=== PATIENT | male | born 1975 | race Caucasian/White ===

== ENCOUNTER 2018-05-04 03:50 | Inpatient (IN) | payer BC ==
[2018-05-04] MEDS ORDERED: BISACODYL (EC) 5 MG TAB PO (07:00)
[2018-05-04] MEDS: ACETAMINOPHEN 325 MG TAB PO ×2 (07:43→22:01)
[2018-05-04] MEDS: SOD CHLORIDE 0.9% 1,000 ML IV ×3 (07:55→17:49)
[2018-05-04] MEDS: CEFTRIAXONE 1 GM/50 ML (PMX) 50 ML IVPB (07:55)
[2018-05-04] MEDS ORDERED: IPRATROPIUM (NEB) 0.5 MG/2.5 ML AMP HHN ×2 (08:00→09:00)
[2018-05-04] MEDS: PANTOPRAZOLE (EC) 40 MG TAB PO (08:17)
[2018-05-04] MEDS: ENOXAPARIN 40 MG/0.4 ML SYG SC (08:20)
[2018-05-04] MEDS: AZITHROMYCIN 500MG/NS (PMX) 250 ML IV (08:39)
[2018-05-04] MEDS: INSULIN ASPART [NOVOLOG] 3 ML PEN SC ×4 (08:47→20:05)
[2018-05-04] MEDS: ALBUTEROL/IPRATROPIUM (NEB) 3 ML AMP HHN ×3 (08:52→20:00)
[2018-05-04] MEDS ORDERED: AZITHROMYCIN 500 MG in SOD CHLORIDE 0.9% 250 ML IVPB (09:00)
[2018-05-04 10:10] LABS: ADD MAN DIFF? NO
[2018-05-04 10:18] LABS: WHITE BLOOD COUNT 22.2 10^3/ul (4.8-10.8)
[2018-05-04 10:18] LABS: BASOPHILS % 0.2 % (0.0-2.0); HEMATOCRIT 36.7 % (42.0-52.0); HEMOGLOBIN 12.3 g/dl (14.0-18.0); LYMPHOCYTES # 1.4 10^3/ul (0.8-2.9); LYMPHOCYTES % 6.2 % (15.0-51.0); MEAN CORPUSCULAR HEMOGLOBIN 29.2 pg (29.0-33.0); MEAN CORPUSCULAR HGB CONC 33.5 g/dl (32.0-37.0); MEAN CORPUSCULAR VOLUME 87.2 fl (82.0-101.0); MEAN PLATELET VOLUME 9.9 fl (7.4-10.4); MONOCYTE # 1.1 10^3/ul (0.3-0.9); MONOCYTES % 4.8 % (0.0-11.0); NEUTROPHILS % 85.8 % (39.0-77.0); PLATELET COUNT 235 10^3/UL (140-415); RED BLOOD COUNT 4.21 10^6/ul (4.70-6.10); RED CELL DISTRIBUTION WIDTH 13.5 % (11.5-14.5)
[2018-05-04 10:40] LABS: ANION GAP 15 (8-16); BLOOD UREA NITROGEN 12 mg/dl (7-20); CALCIUM 8.8 mg/dl (8.4-10.2); CARBON DIOXIDE 27 mmol/L (21-31); CHLORIDE 101 mmol/L (97-110); CREATININE 0.77 mg/dl (0.61-1.24); GLUCOSE 106 mg/dl (70-220); POTASSIUM 3.8 mmol/L (3.5-5.1); SODIUM 139 mmol/L (135-144)
[2018-05-04 12:42] LABS: LACTIC ACID 1.3 mmol/L (0.5-2.0)
[2018-05-04] MEDS ORDERED: ACETAMINOPHEN 325 MG TAB PO (13:00)
[2018-05-04] MEDS: IBUPROFEN 400 MG TAB PO (13:01)
[2018-05-04] MEDS: HYDROCHLOROTHIAZIDE 12.5 MG CAP PO (13:44)
[2018-05-04] MEDS: LOSARTAN 50 MG TAB PO (13:45)
[2018-05-04 22:43] LABS: LACTIC ACID 1.8 mmol/L (0.5-2.0)
[2018-05-05 01:03] LABS: LACTIC ACID 1.2 mmol/L (0.5-2.0)
[2018-05-05] MEDS: ALBUTEROL/IPRATROPIUM (NEB) 3 ML AMP HHN ×4 (01:17→20:05)
[2018-05-05] MEDS: ACCU-CHEK XX (02:00)
[2018-05-05] MEDS: SOD CHLORIDE 0.9% 1,000 ML IV ×4 (02:02→22:22)
[2018-05-05 06:10] LABS: ADD MAN DIFF? NO
[2018-05-05 06:16] LABS: WHITE BLOOD COUNT 12.8 10^3/ul (4.8-10.8)
[2018-05-05 06:16] LABS: BASOPHILS % 0.2 % (0.0-2.0); EOSINOPHILS # 0.2 10^3/ul (0.0-0.5); EOSINOPHILS % 1.3 % (0.0-7.0); HEMATOCRIT 38.4 % (42.0-52.0); HEMOGLOBIN 12.4 g/dl (14.0-18.0); LYMPHOCYTES # 1.3 10^3/ul (0.8-2.9); LYMPHOCYTES % 10.1 % (15.0-51.0); MEAN CORPUSCULAR HEMOGLOBIN 28.7 pg (29.0-33.0); MEAN CORPUSCULAR HGB CONC 32.3 g/dl (32.0-37.0); MEAN CORPUSCULAR VOLUME 88.9 fl (82.0-101.0); MEAN PLATELET VOLUME 10.6 fl (7.4-10.4); MONOCYTE # 0.7 10^3/ul (0.3-0.9); MONOCYTES % 5.1 % (0.0-11.0); NEUTROPHIL # 10.6 10^3/ul (1.6-7.5); NEUTROPHILS % 82.8 % (39.0-77.0); PLATELET COUNT 214 10^3/UL (140-415); RED BLOOD COUNT 4.32 10^6/ul (4.70-6.10); RED CELL DISTRIBUTION WIDTH 13.2 % (11.5-14.5)
[2018-05-05] MEDS: CEFTRIAXONE 1 GM/50 ML (PMX) 50 ML IVPB (06:18)
[2018-05-05] MEDS: PANTOPRAZOLE (EC) 40 MG TAB PO (06:21)
[2018-05-05] MEDS: LEVOTHYROXINE 25 MCG TAB PO (06:22)
[2018-05-05 06:41] LABS: ANION GAP 14 (8-16); BLOOD UREA NITROGEN 12 mg/dl (7-20); CARBON DIOXIDE 26 mmol/L (21-31); CHLORIDE 106 mmol/L (97-110); CREATININE 0.67 mg/dl (0.61-1.24); GLUCOSE 131 mg/dl (70-220); POTASSIUM 3.5 mmol/L (3.5-5.1); SODIUM 142 mmol/L (135-144)
[2018-05-05 07:05] LABS: HEMOGLOBIN A1C 6.4 % (0-5.9)
[2018-05-05] MEDS: AZITHROMYCIN 500MG/NS (PMX) 250 ML IV (07:37)
[2018-05-05] MEDS: INSULIN ASPART [NOVOLOG] 3 ML PEN SC ×4 (07:37→21:00)
[2018-05-05] MEDS: HYDROCHLOROTHIAZIDE 12.5 MG CAP PO (07:38)
[2018-05-05] MEDS: LOSARTAN 50 MG TAB PO (07:38)
[2018-05-05] MEDS: IBUPROFEN 400 MG TAB PO ×2 (07:47→20:34)
[2018-05-05] MEDS: ENOXAPARIN 40 MG/0.4 ML SYG SC (07:50)
[2018-05-05] MEDS ORDERED: NON-FORMULARY/PATIENT OWN MED (Losartan-Hydrochlorothiazide (Losartan-HCTZ) 1 TAB) PO (09:00)
[2018-05-06] MEDS: ALBUTEROL/IPRATROPIUM (NEB) 3 ML AMP HHN ×4 (02:00→19:38)
[2018-05-06] MEDS: ACCU-CHEK XX (02:00)
[2018-05-06] MEDS: IBUPROFEN 400 MG TAB PO ×2 (04:03→23:13)
[2018-05-06 05:43] LABS: ADD MAN DIFF? NO
[2018-05-06 05:58] LABS: BASOPHILS % 0.2 % (0.0-2.0); EOSINOPHILS # 0.1 10^3/ul (0.0-0.5); EOSINOPHILS % 1.6 % (0.0-7.0); HEMATOCRIT 35.4 % (42.0-52.0); LYMPHOCYTES # 1.2 10^3/ul (0.8-2.9); MEAN CORPUSCULAR HEMOGLOBIN 29.2 pg (29.0-33.0); MEAN CORPUSCULAR HGB CONC 33.9 g/dl (32.0-37.0); MEAN CORPUSCULAR VOLUME 86.1 fl (82.0-101.0); MEAN PLATELET VOLUME 10.3 fl (7.4-10.4); MONOCYTE # 0.5 10^3/ul (0.3-0.9); MONOCYTES % 6.5 % (0.0-11.0); NEUTROPHIL # 6.2 10^3/ul (1.6-7.5); PLATELET COUNT 276 10^3/UL (140-415); RED BLOOD COUNT 4.11 10^6/ul (4.70-6.10); RED CELL DISTRIBUTION WIDTH 13.4 % (11.5-14.5)
[2018-05-06 05:58] LABS: WHITE BLOOD COUNT 8.1 10^3/ul (4.8-10.8)
[2018-05-06] MEDS: PANTOPRAZOLE (EC) 40 MG TAB PO (06:15)
[2018-05-06] MEDS: LEVOTHYROXINE 25 MCG TAB PO (06:15)
[2018-05-06] MEDS: CEFTRIAXONE 1 GM/50 ML (PMX) 50 ML IVPB (06:16)
[2018-05-06] MEDS: INSULIN ASPART [NOVOLOG] 3 ML PEN SC ×4 (07:37→20:52)
[2018-05-06] MEDS: AZITHROMYCIN 500MG/NS (PMX) 250 ML IV (08:12)
[2018-05-06] MEDS: LOSARTAN 50 MG TAB PO (08:12)
[2018-05-06] MEDS: HYDROCHLOROTHIAZIDE 12.5 MG CAP PO (08:12)
[2018-05-06] MEDS: ENOXAPARIN 40 MG/0.4 ML SYG SC (08:19)
[2018-05-06 08:38] LABS: ANION GAP 13 (8-16); BLOOD UREA NITROGEN 12 mg/dl (7-20); CALCIUM 9.3 mg/dl (8.4-10.2); CARBON DIOXIDE 25 mmol/L (21-31); CHLORIDE 108 mmol/L (97-110); CREATININE 0.63 mg/dl (0.61-1.24); GLUCOSE 114 mg/dl (70-220); POTASSIUM 3.8 mmol/L (3.5-5.1); SODIUM 142 mmol/L (135-144)
[2018-05-06] MEDS: HYDROCODONE/HOMATROPINE 5ML CUP PO (16:59)
[2018-05-07] MEDS: ALBUTEROL/IPRATROPIUM (NEB) 3 ML AMP HHN ×3 (01:29→13:38)
[2018-05-07] MEDS: ACCU-CHEK XX (02:00)
[2018-05-07] MEDS: ACETAMINOPHEN 325 MG TAB PO ×2 (05:33→20:13)
[2018-05-07] MEDS: PANTOPRAZOLE (EC) 40 MG TAB PO (05:33)
[2018-05-07] MEDS: HYDROCODONE/HOMATROPINE 5ML CUP PO ×3 (05:33→14:39)
[2018-05-07] MEDS: LEVOTHYROXINE 25 MCG TAB PO (06:22)
[2018-05-07] MEDS: CEFTRIAXONE 1 GM/50 ML (PMX) 50 ML IVPB (06:25)
[2018-05-07] MEDS: INSULIN ASPART [NOVOLOG] 3 ML PEN SC ×4 (07:38→21:00)
[2018-05-07] MEDS: ENOXAPARIN 40 MG/0.4 ML SYG SC (08:26)
[2018-05-07] MEDS: AZITHROMYCIN 500MG/NS (PMX) 250 ML IV (08:27)
[2018-05-07] MEDS: LIDOCAINE 2% VISC 15 ML CUP PO (14:34)
[2018-05-07] MEDS: LEVALBUTEROL (NEB) 0.63 MG/3 ML AMP HHN (20:28)
[2018-05-07] MEDS: LORAZEPAM 0.5 MG TAB PO (22:43)
[2018-05-08] MEDS: LEVALBUTEROL (NEB) 0.63 MG/3 ML AMP HHN ×3 (01:45→14:52)
[2018-05-08] MEDS: ACCU-CHEK XX (02:00)
[2018-05-08] MEDS: HYDROCODONE/HOMATROPINE 5ML CUP PO ×2 (04:24→13:57)
[2018-05-08] MEDS: LIDOCAINE 2% VISC 15 ML CUP PO (04:24)
[2018-05-08] MEDS: LEVOTHYROXINE 25 MCG TAB PO (06:07)
[2018-05-08] MEDS: CEFTRIAXONE 1 GM/50 ML (PMX) 50 ML IVPB (06:07)
[2018-05-08] MEDS: PANTOPRAZOLE (EC) 40 MG TAB PO (06:07)
[2018-05-08] MEDS: INSULIN ASPART [NOVOLOG] 3 ML PEN SC ×2 (07:46→11:53)
[2018-05-08] MEDS: AZITHROMYCIN 500MG/NS (PMX) 250 ML IV (07:47)
[2018-05-08] MEDS: LORAZEPAM 0.5 MG TAB PO (07:47)
[2018-05-08] MEDS: ENOXAPARIN 40 MG/0.4 ML SYG SC (07:52)
[2018-05-08] MEDS ORDERED: PROPRANOLOL 10 MG TAB PO (21:00)
== END 2018-05-08 17:45 | disposition home or self-care (01) | DRG 871 ==
LOC: 6WM 03:50
PROVIDERS: Internal Medicine Nephrology
DX: A41.9 Sepsis, unspecified organism (principal); J18.9 Pneumonia, unspecified organism; Z68.42 Body mass index [BMI] 45.0-49.9, adult; I10 Essential (primary) hypertension; E66.01 Morbid (severe) obesity due to excess calories; E03.9 Hypothyroidism, unspecified; E11.9 Type 2 diabetes mellitus without complications; Z87.891 Personal history of nicotine dependence; E05.90 Thyrotoxicosis, unspecified without thyrotoxic crisis or storm
CPT/HCPCS: 71046; 80048; 82962; 83036; 83605; 84443; 85025; 87081; 93306; 94640; 94664

== ENCOUNTER 2018-08-09 14:59 | Emergency (ER) | payer BC ==
[2018-08-09] MEDS: SOD CHLORIDE 0.9% 1,000 ML IV (15:35)
[2018-08-09] MEDS: FAMOTIDINE 20 MG INJ IV (15:35)
[2018-08-09] MEDS: ONDANSETRON 4 MG INJ IV (15:35)
[2018-08-09] MEDS: CIPROFLOXACIN 500 MG TAB PO (15:35)
[2018-08-09 16:00] LABS: ADD MAN DIFF? NO
[2018-08-09 16:10] LABS: BASOPHILS % 0.4 % (0.0-2.0); EOSINOPHILS # 0.1 10^3/ul (0.0-0.5); EOSINOPHILS % 0.9 % (0.0-7.0); HEMATOCRIT 46.1 % (42.0-52.0); HEMOGLOBIN 15.5 g/dl (14.0-18.0); LYMPHOCYTES # 1.2 10^3/ul (0.8-2.9); LYMPHOCYTES % 13.2 % (15.0-51.0); MEAN CORPUSCULAR HEMOGLOBIN 28.9 pg (29.0-33.0); MEAN CORPUSCULAR HGB CONC 33.6 g/dl (32.0-37.0); MEAN CORPUSCULAR VOLUME 85.8 fl (82.0-101.0); MONOCYTE # 0.6 10^3/ul (0.3-0.9); MONOCYTES % 6.7 % (0.0-11.0); NEUTROPHIL # 7.4 10^3/ul (1.6-7.5); NEUTROPHILS % 78.6 % (39.0-77.0); PLATELET COUNT 290 10^3/UL (140-415); RED BLOOD COUNT 5.37 10^6/ul (4.70-6.10); RED CELL DISTRIBUTION WIDTH 13.6 % (11.5-14.5)
[2018-08-09 16:10] LABS: WHITE BLOOD COUNT 9.4 10^3/ul (4.8-10.8)
[2018-08-09 16:30] LABS: ALANINE AMINOTRANSFERASE 21 IU/L (13-69); ALBUMIN 4.6 g/dl (3.3-4.9); ALBUMIN/GLOBULIN RATIO 1.09; ALKALINE PHOSPHATASE 68 IU/L (42-121); ANION GAP 12 (5-13); ASPARTATE AMINO TRANSFERASE 28 IU/L (15-46); BILIRUBIN,INDIRECT 0.2 mg/dl (0-1.1); BILIRUBIN,TOTAL 0.2 mg/dl (0.2-1.3); BLOOD UREA NITROGEN 15 mg/dl (7-20); CARBON DIOXIDE 30 mmol/L (21-31); CHLORIDE 100 mmol/L (97-110); CREATININE 0.84 mg/dl (0.61-1.24); Estimated GFR > 60 mL/min (>60); GLUCOSE 120 mg/dl (70-220); LIPASE 102 U/L (23-300); POTASSIUM 3.7 mmol/L (3.5-5.1); SODIUM 142 mmol/L (135-144); TOTAL PROTEIN 8.8 g/dl (6.1-8.1)
[2018-08-09 16:47] LABS: ADD UMIC YES; UR ASCORBIC ACID NEGATIVE (NEGATIVE); UR BILIRUBIN (Dip) NEGATIVE (NEGATIVE); UR BLOOD (Dip) 1+ mg/dL (NEGATIVE); UR CALCIUM OXALATE CRYSTAL MANY /HPF (NONE SEEN); UR CLARITY SLIGHTLY CLOUDY (CLEAR); UR COLOR YELLOW (YELLOW); UR GLUCOSE (Dip) NEGATIVE (NEGATIVE); UR KETONES (Dip) TRACE mg/dL (NEGATIVE); UR LEUKOCYTE ESTERASE (Dip) NEGATIVE Leu/ul (NEGATIVE); UR MUCUS MODERATE /HPF (NONE SEEN); UR NITRITE (Dip) NEGATIVE (NEGATIVE); UR RBC 1 /HPF (0-5); UR SPECIFIC GRAVITY (Dip) 1.036 (1.003-1.030); UR TOTAL PROTEIN (Dip) 2+ mg/dl (NEGATIVE); UR UROBILINOGEN (Dip) 1+ mg/dL (NEGATIVE); UR WBC 0 /HPF (0-5)
== END 2018-08-09 17:45 | disposition home or self-care (01) ==
LOC: FTE 14:59
DX: A09 Infectious gastroenteritis and colitis, unspecified (principal); Z79.84 Long term (current) use of oral hypoglycemic drugs; Z87.891 Personal history of nicotine dependence
CPT/HCPCS: 36415; 80053; 81001; 83690; 85025; 96361; 96374; 96375; 99284-25